=== PATIENT | male | born 1990 | race American Indian/Alaskan Native ===

== ENCOUNTER 2020-06-21 18:44 | Emergency (ER) | payer SELFPAY ==
--- NOTE | 2020-06-21 19:34 | Emergency Department Report ---
HPI - General Chief Complaint: Psych Time Seen by Provider: 06/21/20 19:20 - HPI HPI: Room 12 The patient is a 30-year-old male present with a chief complaint of suicidal ideation and overdose attempt. The patient states he is felt depressed lately and this afternoon he got into his tub and took 12 Naprosyn (dosage unknown) and 1 oxycodone (dosage unknown). The patient states he fell asleep when he was found by his mother in the tub and EMS was called. Patient has no complaints now stating he just feels hungry. Patient states his last suicide attempt before today occurred in 2009. ED Past Medical Hx - Past Medical History Previous Medical History?: No - Surgical History Past Surgical History?: No - Family History Family history: no significant - Social History Smoking Status: Current Every Day Smoker Substance Use Type: Alcohol (Daily), Cocaine, Marijuana, Other - Medications Home Medications: Home Medications Medication Instructions Recorded Confirmed Last Taken Type HYDROcodone/APAP 5-325 [[place] 1 each PO Q6HR PRN #14 tablet 06/06/14 Unknown Rx 5/325] Ibuprofen [Motrin 800 MG tab] 800 mg PO Q8H #30 tablet 06/06/14 Unknown Rx ED Review of Systems ROS: Stated complaint: SUICIDE ATTEMPT Other details as noted in HPI Constitutional: no symptoms reported Respiratory: no symptoms reported Endocrine: no symptoms reported Psychiatric: depression, suicidal thoughts Physical Exam - Physical Exam Physical Exam: GENERAL: The patient is well-developed well-nourished male lying on stretcher not appearing to be in acute distress. [] HEENT: Normocephalic. Atraumatic. Extraocular motions are intact. Patient has moist mucous membranes. NECK: Supple. Trachea midline CHEST/LUNGS: Clear to auscultation. There is no respiratory distress noted. HEART/CARDIOVASCULAR: Regular. There is no tachycardia. There is no gallop rub or murmur. ABDOMEN: Abdomen is soft, nontender. Patient has normal bowel sounds. There is no abdominal distention. SKIN: There is no rash. There is no edema. There is no diaphoresis. NEURO: The patient is awake, alert, and oriented. The patient is cooperative. The patient has no focal neurologic deficits. The patient has normal speech MUSCULOSKELETAL: There is no evidence of acute injury. ED Course - Consultations Consultation #1: 06/21/20 19:58 Poison control called ED Medical Decision Making - Lab Data Result diagrams: 06/21/20 20:10 06/21/20 20:10 Laboratory Tests 06/21/20 06/21/20 06/21/20 20:10 20:10 20:10 WBC 5.0 RBC 5.19 H Hgb 16.5 H Hct 46.5 H MCV 90 MCH 32 MCHC 35 H RDW 12.8 L Plt Count 179 Lymph % (Auto) 30.4 [place] % (Auto) 3.1 Eos % (Auto) 1.2 Baso % (Auto) 0.9 Lymph # 1.5 Motley # 0.2 Eos # 0.1 Baso # 0.0 Seg Neutrophils % 64.4 Seg Neutrophils # 3.2 Sodium 140 Potassium 3.9 Chloride 100.2 Carbon Dioxide 24 Anion Gap 20 BUN 11 Creatinine 1.2 Estimated GFR > 60 BUN/Creatinine Ratio 9 Glucose 104 H Calcium 9.7 Total Bilirubin 0.40 AST 32 ALT 21 Alkaline Phosphatase 57 Total Protein 8.4 H Albumin 5.0 Albumin/Globulin Ratio 1.5 Urine Color Urine Turbidity Urine pH Ur Specific [place] Urine Protein Urine Glucose (UA) Urine Ketones Urine Blood Urine Nitrite Urine Bilirubin Urine Urobilinogen Ur Leukocyte Esterase Urine WBC (Auto) Urine RBC (Auto) U Epithel Cells (Auto) Urine Bacteria (Auto) Salicylates < 0.3 L Urine Opiates Screen Urine Methadone Screen Acetaminophen Ur Barbiturates Screen Ur Phencyclidine Scrn Ur Amphetamines Screen U Benzodiazepines Scrn Urine Cocaine Screen U Marijuana (THC) Screen Drugs of Abuse Note Plasma/Serum Alcohol 06/21/20 06/21/20 06/21/20 20:10 20:10 Unknown WBC RBC Hgb Hct MCV MCH MCHC RDW Plt Count Lymph % (Auto) [place] % (Auto) Eos % (Auto) Baso % (Auto) Lymph # [place] # Eos # Baso # Seg Neutrophils % Seg Neutrophils # Sodium Potassium Chloride Carbon Dioxide Anion Gap BUN Creatinine Estimated GFR BUN/Creatinine Ratio Glucose Calcium Total Bilirubin AST ALT Alkaline Phosphatase Total Protein Albumin Albumin/Globulin Ratio Urine Color Straw Urine Turbidity Clear Urine pH 5.0 Ur Specific [place] 1.004 Urine Protein <15 mg/dl Urine Glucose (UA) Neg Urine Ketones Neg Urine Blood Neg Urine Nitrite Neg Urine Bilirubin Neg Urine Urobilinogen < 2.0 Ur Leukocyte Esterase Neg Urine WBC (Auto) 1.0 Urine RBC (Auto) 1.0 U Epithel Cells (Auto) < 1.0 Urine Bacteria (Auto) 1+ Salicylates Urine Opiates Screen Urine Methadone Screen Acetaminophen 5.0 L Ur Barbiturates Screen Ur Phencyclidine Scrn Ur Amphetamines Screen U Benzodiazepines Scrn Urine Cocaine Screen U Marijuana (THC) Screen Drugs of Abuse Note Plasma/Serum Alcohol 0.17 H 06/21/20 Unknown WBC RBC Hgb Hct MCV MCH MCHC RDW Plt Count Lymph % (Auto) [place] % (Auto) Eos % (Auto) Baso % (Auto) Lymph # [place] # Eos # Baso # Seg Neutrophils % Seg Neutrophils # Sodium Potassium Chloride Carbon Dioxide Anion Gap BUN Creatinine Estimated GFR BUN/Creatinine Ratio Glucose Calcium Total Bilirubin AST ALT Alkaline Phosphatase Total Protein Albumin Albumin/Globulin Ratio Urine Color Urine Turbidity Urine pH Ur Specific [place] Urine Protein Urine Glucose (UA) Urine Ketones Urine Blood Urine Nitrite Urine Bilirubin Urine Urobilinogen Ur Leukocyte Esterase Urine WBC (Auto) Urine RBC (Auto) U Epithel Cells (Auto) Urine Bacteria (Auto) Salicylates Urine Opiates Screen Presumptive negative Urine Methadone Screen Presumptive negative Acetaminophen Ur Barbiturates Screen Presumptive negative Ur Phencyclidine Scrn Presumptive negative Ur Amphetamines Screen Presumptive negative U Benzodiazepines Scrn Presumptive negative Urine Cocaine Screen Presumptive negative U Marijuana (THC) Screen Presumptive negative Drugs of Abuse Note Disclamer Plasma/Serum Alcohol - EKG Data -: EKG Interpreted by Me EKG shows normal: sinus rhythm Rate: normal - EKG Data When compared to previous EKG there are: previous EKG unavailable Interpretation: other (QRS 66.) - Differential Diagnosis Suicidal ideation Critical care attestation.: If time is entered above; I have spent that time in minutes in the direct care of this critically ill patient, excluding procedure time. ED Disposition Clinical Impression: Suicidal ideation, Intentional drug overdose Disposition: [id number]/TX-[id number] PSY HOSP/PSY UNIT Is pt being admited?: No Does the pt Need Aspirin: No Condition: Stable Referrals: PRIMARY CARE, [Primary Care Provider] - 3-5 Days Time of Disposition: 21:35 (Awaiting placement)
[2020-06-21 20:25] LABS: Bacteria,Urine 1+ /HPF (Negative); Bilirubin,Urine NEG (Negative); Blood,Urine NEG (Negative); Color,Urine Straw (Yellow); Protein,Urine <15 mg/dL mg/dL (Negative); Urobilinogen,Urine < 2.0 mg/dL (<2.0)
[2020-06-21 20:32] LABS: Amphetamine Screen,Urine PRESUMPTIVE NEGATIVE; Benzodiazepines Screen,Urine PRESUMPTIVE NEGATIVE; Cannabinoid Screen,Urine PRESUMPTIVE NEGATIVE; Cocaine Screen,Urine PRESUMPTIVE NEGATIVE; Methadone Screen,Urine PRESUMPTIVE NEGATIVE; Opiate Screen,Urine PRESUMPTIVE NEGATIVE
[2020-06-21 20:37] LABS: Basophils % (Auto) 0.9 % (0.0-1.8); Eosinophils # (Auto) 0.1 K/mm3 (0.0-0.4); Eosinophils % (Auto) 1.2 % (0.0-4.3); Hematocrit 46.5 % (35.5-45.6); Hemoglobin 16.5 gm/dl (11.8-15.2); Lymphocytes # (Auto) 1.5 K/mm3 (1.2-5.4); Lymphocytes % (Auto) 30.4 % (13.4-35.0); Mean Corpuscular HGB Conc 35 % (32-34); Mean Corpuscular Volume 90 fl (84-94); Monocytes # (Auto) 0.2 K/mm3 (0.0-0.8); Monocytes % (Auto) 3.1 % (0.0-7.3); Platelet Count 179 K/mm3 (140-440); Red Blood Count 5.19 M/mm3 (3.65-5.03); Red Cell Distribution Width 12.8 % (13.2-15.2)
[2020-06-21 20:41] LABS: Alanine Aminotransferase 21 units/L (7-56); BUN/Creatinine Ratio 9; Blood Urea Nitrogen 11 mg/dL (9-20); Calcium 9.7 mg/dL (8.4-10.2); Hemolysis Index 12
--- NOTE | 2020-06-22 09:25 | Consultation ---
History of Present Illness - Reason for Consult Consult date: 06/22/20 Reason for consult: SI, OD - History of Present Psychiatric Illness Fredy Vallecillo is a 30y/o male patient who present to the ER for suicidal attempt by taking "thirteen pills." during my interview today, the patient was laying down. He is led to a place to speak to him privately. He is oriented x 3. He's quiet and soft spoken. The patient makes poor eye contact. He verbalizes being "depressed" and "tired of living." The patient says he's a "felon" and "my choices are limited." The patient says he had "one suicide attempt two years ago." He says but he "didn't go to the hospital for it." The patient denies being on any medications at this time. He says he saw a psychiatrist once and missed his last appointment for medication management. He says he has "never been on any psychiatric medications." He denies hallucinations of any kind. The patient verbalizes using "cocaine and weed." He also says he "drinks 750L of alcohol daily." He says he "smokes a pack of cigarets a day." The patient b ecomes tearful when advised that it would be best if had had inpatient treatment. He says, "no please don't do that. I feel better." PAST PSYCHIATRIC HISTORY: Diagnoses: Depression Suicide attempts or Self-harm behavior: Once Prior psychiatric hospitalizations: Denies Substance Abuse history: Cocaine, THC, alcohol nicotine Previous psychiatric medications tried: Denies Outpatient treatment: Yes PAST MEDICAL HISTORY: None reported Family Psychiatric History: None reported or documented SOCIAL HISTORY Marital Status: Single Living Arrangements: with girlfriend Employment Status: Unemployed Access to guns/weapons: Denies Education: 11th grade History of Abuse: Denies Legal History: none reported REVIEW OF SYSTEMS Constitutional: Negative for weight loss ENT: Negative for stridor Respiratory: Negative for cough or hemoptysis All other systems reviewed and are negative MENTAL STATUS EXAMINATION General Appearance: Dressed appropriately Behavior: Calm, cooperative. Poor eye contact. Mood: "depressed" Affect and affective range: Congruent with stated mood, tearful Thought Process: Goal directed Speech: Soft tone, normal rate Thought Content: Suicidal Ideation: Yes Homicidal Ideation: Denies Hallucinations: Denies Delusions: None elicited Insight and Judgment: Limited Memory/Cognition: Limited Attention: Normal ASSESSMENT Major Depressive Disorder, Severe w/o Psychotic Features RECOMMENDATIONS Assess CIWA Start Nicotine patch 21mg qd Start Abilify 5mg po daily Start Zoloft 25mg po daily Start Trazodone 50mg po qhs Start Geodon 10mg q6h prn agitation Sitter: Defer to primary Medical: per primary Disposition: Recommend acute inpatient psychiatric treatment once medically clear Legal status: 1013 Will continue to follow Thank you for this consult. Please call with any questions or concerns. Medications and Allergies Allergies Allergy/AdvReac Type Severity Reaction Status Date / Time No Known Allergies Allergy Verified 06/06/14 00:26 Home Medications Medication Instructions Recorded Confirmed Last Taken Type HYDROcodone/APAP 5-325 [[place] 1 each PO Q6HR PRN #14 tablet 06/06/14 Unknown Rx 5/325] Ibuprofen [Motrin 800 MG tab] 800 mg PO Q8H #30 tablet 06/06/14 Unknown Rx Mental Status Exam - Vital signs Last Vital Signs Temp 97.1 F L 06/22/20 01:33 Pulse 80 06/22/20 01:33 Resp 18 06/22/20 01:33 BP 122/69 06/22/20 01:33 Pulse Ox 99 06/22/20 01:33 Results Result Diagrams: 06/21/20 20:10 06/21/20 20:10 Abnormal lab results 06/21/20 06/21/20 06/21/20 Range/Units 20:10 20:10 20:10 RBC 5.19 H (3.65-5.03) M/mm3 Hgb 16.5 H (11.8-15.2) gm/dl Hct 46.5 H (35.5-45.6) % MCHC 35 H (32-34) % RDW 12.8 L (13.2-15.2) % Glucose 104 H (75-100) mg/dL Total Protein 8.4 H (6.3-8.2) g/dL Salicylates < 0.3 L (2.8-20.0) mg/dL Acetaminophen (10.0-30.0) ug/mL Plasma/Serum Alcohol (0-0.07) % 06/21/20 06/21/20 Range/Units 20:10 20:10 RBC (3.65-5.03) M/mm3 Hgb (11.8-15.2) gm/dl Hct (35.5-45.6) % MCHC (32-34) % RDW (13.2-15.2) % Glucose (75-100) mg/dL Total Protein (6.3-8.2) g/dL Salicylates (2.8-20.0) mg/dL Acetaminophen 5.0 L (10.0-30.0) ug/mL Plasma/Serum Alcohol 0.17 H (0-0.07) % All other labs normal.
[2020-06-22] MEDS ORDERED: ZIPRASIDONE MESYLATE 20 MG VIAL IM PRN (09:31)
[2020-06-22] MEDS: ARIPiprazole 5 MG TAB PO SCH (11:00)
[2020-06-22] MEDS: SERTRALINE 25 MG TAB PO SCH (11:01)
[2020-06-22] MEDS: NICOTINE 21 MG/24 HR PATCH TD SCH (11:01)
[2020-06-22] MEDS ORDERED: MELATONIN 5 MG TAB PO PRN (22:00)
[2020-06-22] MEDS: traZODone 50 MG TAB PO SCH (23:20)
--- NOTE | 2020-06-23 10:24 | Progress Note ---
Subjective - Reason for Consult Consult date: 06/23/20 Reason for consult: Depression, SI - Chief Complaint Chief complaint: During my interview with the patient today, he is lying down. He is led to a private area for us to speak. He is a/o x 3. The patient makes fair eye contact. His disposition is quiet and withdrawn. His affect is restricted. The patient verbalizes "feeling better" but appears down and some what indecisive. He then says "I'm still depressed but better." He asking to go home. He says "I think I will be okay with outpatient treatment." The patient denies SI/HI. He states, "I'm gone try not to do that again." He says, "I told you I was seeking help but I missed my appointment." He says "I really do try but I just have so many set backs." He says, "things just keep happening in my life to set me back." The patient gave me permission to speak with his mom, Eddie at [phone]. I called mom from my personal cell at bedside and spoke to her in debt. Mom states that she spoke to the patient and states he can come live with her upon discharge. She says but when she spoke with the patient he did not sound like himself. She says even thought the patient stated he was better, something in his voice didn't sound like himself. Mom says the patient has a long history of depression and drinking, and thinking about self harm when things are not right. She says a lot of things that was going on with [place] she was not aware because he keeps her out for fear of "being a burden." She says he also has a strong support system but the patient does not utilize any of his support. Discussed with mom that going home is probably not best for the patient at this point but would benefit for inpatient treatment. Mom is in agreement. REVIEW OF SYSTEMS Constitutional: Negative for weight loss ENT: Negative for stridor Respiratory: Negative for cough or hemoptysis All other systems reviewed and are negative MENTAL STATUS EXAMINATION General Appearance: Dressed appropriately Behavior: Calm, cooperative. fair eye contact. Withdrawn. Quiet Mood: "depressed, better" Affect and affective range: Restricted Thought Process: Goal directed Speech: Soft tone, normal rate Thought Content: Suicidal Ideation: Passive Homicidal Ideation: Denies Hallucinations: Denies Delusions: None elicited Insight and Judgment: Limited Memory/Cognition: Limited Attention: Normal ASSESSMENT Major Depressive Disorder, Severe w/o Psychotic Features RECOMMENDATIONS Assess CIWA Increase Zoloft 50mg po daily Sitter: Defer to primary Medical: per primary Disposition: Recommend acute inpatient psychiatric treatment once medically clear Legal status: 1013 Will continue to follow Thank you for this consult. Please call with any questions or concerns. Mental Status Exam - Vital signs Last Vital Signs Temp 98.6 F 06/23/20 02:00 Pulse 73 06/23/20 02:00 Resp 18 06/23/20 02:00 BP 111/73 06/23/20 02:00 Pulse Ox 99 06/23/20 02:00
[2020-06-23] MEDS: NICOTINE 21 MG/24 HR PATCH TD SCH (11:40)
[2020-06-23] MEDS: ARIPiprazole 5 MG TAB PO SCH (11:41)
[2020-06-23] MEDS: SERTRALINE 25 MG TAB PO SCH (11:48)
[2020-06-23] MEDS ORDERED: SERTRALINE 50 MG TAB PO SCH (12:00)
[2020-06-23 20:27] VITALS: BP 146/86
[2020-06-23] MEDS: traZODone 50 MG TAB PO SCH (21:16)
[2020-06-24] MEDS: traZODone 50 MG TAB PO SCH (07:09)
== END 2020-06-24 07:52 ==
LOC: EEVIPCON 18:44 → ED 18:44
DX: T39.312A Poisoning by propionic acid derivatives, intentional self-harm, initial encounter (principal); R45.851 Suicidal ideations; F17.200 Nicotine dependence, unspecified, uncomplicated; F12.90 Cannabis use, unspecified, uncomplicated; F14.90 Cocaine use, unspecified, uncomplicated; Z79.899 Other long term (current) drug therapy; Y92.89 Other specified places as the place of occurrence of the external cause
CPT/HCPCS: 36415; 80053; 80307; 80320; 81001; 85025; 93005; G0480